=== PATIENT | female | born 1955 | race Caucasian/White ===

== ENCOUNTER 2018-08-12 12:04 | Emergency (ER) | payer MEDICARE, OTHER ==
--- NOTE | 2018-08-12 12:33 | RAD ---
EXAM: Left wrist: 3 views INDICATIONS: Injury COMPARISON: None. FINDINGS: Predominantly transverse, mildly comminuted and impacted fracture of the distal radius with dorsal angulation of the distal fragment consistent with Colles' type injury. IMPRESSION: Fracture distal radius
[2018-08-12] MEDS ORDERED: Bupivacaine 0.5% 10 ML VIAL ONE ×2 (12:38→12:43)
[2018-08-12] MEDS ORDERED: traMADol HCl 50 MG TAB ONE (12:58)
[2018-08-12] MEDS ORDERED: Ondansetron ODT 4 MG TAB ONE (12:59)
--- NOTE | 2018-08-12 13:02 | RAD ---
EXAM: Left humerus: 2 views INDICATIONS: Injury COMPARISON: None. FINDINGS: Degenerative change at the glenohumeral joint with spurring from the humeral head. No fract ure or other osseous abnormality. IMPRESSION: No acute finding
== END 2018-08-12 13:35 | disposition home or self-care (01) ==
LOC: NAV ERS 12:04
DX: S52.502A Unspecified fracture of the lower end of left radius, initial encounter for closed fracture (principal); E03.9 Hypothyroidism, unspecified; Z79.899 Other long term (current) drug therapy; W18.30XA Fall on same level, unspecified, initial encounter
CPT/HCPCS: 25605; J3490; Q0162